=== PATIENT | male | born 1970 | race Caucasian/White ===

== ENCOUNTER 2016-10-17 11:47 | Observation (INO) ==
--- NOTE | 2016-10-17 12:05 | Emergency Department Note ---
Disposition Clinical Impression: Hyperglycemia Disposition: Admitted As Inpatient Condition: Fair General Adult HPI - General Chief complaint: ED General Medical Stated complaint: elevated blood sugar Source: patient, EMS Limitations: no limitations Nursing Notes Reviewed: Yes Vital Signs Reviewed: Yes - History of Present Illness HPI Narrative: 45-year-old gentleman who is known diabetic. He is placed on steroids related to a sinus infection. His glucose has been reading much higher. He was brought in by squad today because of diabetic emergency. Patient has not passed out. Patient has been somnolent. 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 He has not fainted. Patient is a type II diabetic. His states she called his family doctor Dr. Ambrocio: Insulin when they went to the pharmacy there is no prescription so called squad. Onset (ago): day(s) Pain Scale: 0 - Related Data Home Medications Medication Instructions Recorded Confirmed Aspirin [Lo-Dose Aspirin EC] 81 mg PO DAILY 10/17/16 10/17/16 Atorvastatin [Lipitor] 40 mg PO HS 10/17/16 10/17/16 Azithromycin [Azithromycin 6-Tab 250 mg PO PER PKG DI 10/17/16 10/17/16 Pack] Clindamycin HCl [Cleocin HCl] 300 mg PO TID 10/17/16 10/17/16 Escitalopram [Lexapro] 20 mg PO DAILY 10/17/16 10/17/16 Furosemide [Lasix] 40 mg PO DAILY 10/17/16 10/17/16 Insulin Glargine [Lantus] 20 - 50 unit SQ HS 10/17/16 10/17/16 Lisinopril [Zestril] 10 mg PO DAILY 10/17/16 10/17/16 Loperamide [Imodium] 2 mg PO QID 10/17/16 10/17/16 Loratadine [Claritin] 10 mg PO DAILY 10/17/16 10/17/16 Metformin [Glucophage] 1,000 mg PO 0800 10/17/16 10/17/16 MethylPREDNISolone 4 mg PO DAILY 10/17/16 10/17/16 [MethylPREDNISolone Dose Pack] Metoprolol Tartrate [Lopressor] 50 mg PO BID 10/17/16 10/17/16 Potassium Chloride [Klor-Con 10] 20 meq PO DAILY 10/17/16 10/17/16 Tizanidine HCl 4 mg PO QID 10/17/16 10/17/16 Allergies Allergy/AdvReac Type Severity Reaction Status Date / Time Penicillins AdvReac See Verified 01/25/16 08:14 Comments Procaine [From Novocain] AdvReac See Verified 01/25/16 08:14 Comments All systems ED: reviewed and negative except as stated. Past Medical History - Past Medical History Medical history: Reports: arthritis, coronary artery disease, diabetes, GERD, hyperlipidemia, hypertension, valvular heart disease Psychiatric history: Reports: anxiety, depression - Social History Smoking Status: Former smoker Smokeless Tobacco Status: No Alcohol use: Reports: none Drug use: Reports: none Physical Exam - General Limitations: no limitations General appearance: alert, in no apparent distress - Head Head exam: atraumatic - Eye Eye exam: Present: normal appearance, PERRL - Neck Neck exam: Present: normal inspection - Chest Chest inspection: Present: normal inspection, other (Sternal scar consistent with valve replacement) - Respiratory Respiratory exam: Present: normal lung sounds bilaterally - Cardiovascular Cardiovascular exam: Present: regular rate, systolic murmur - Abdominal Exam Abdominal exam: Present: soft, Non-Tender - Expanded Lower Extremity Exam Gait: not tested/not observed - Back Exam Back exam: Present: normal inspection - Neurological Exam Neurological exam: Present: alert, oriented X3, CN II-XII intact - Psychiatric Psychiatric exam: Present: normal affect, normal mood - Skin Skin exam: Present: warm, dry Course Vital Signs Temperature 97.7 F 10/17/16 11:51 Pulse Rate 66 10/17/16 11:51 Respiratory Rate 18 10/17/16 11:51 Blood Pressure 135/87 10/17/16 11:51 O2 Sat by Pulse Oximetry 96 10/17/16 11:51 Temperature 97.6 F 10/17/16 13:48 Pulse Rate 62 10/17/16 13:48 Respiratory Rate 18 10/17/16 13:48 Blood Pressure 116/80 10/17/16 13:48 O2 Sat by Pulse Oximetry 94 L 10/17/16 13:48 Oxygen Delivery Oxygen Delivery Room Air Medical Decision Making - MDM Narrative Medical decision making narrative: Differential: Diabetic ketoacidosis versus steroid-induced hyperglycemia versus syncope versus cardiac event - Lab Data Lab results reviewed: Yes I reviewed the patient's lab results. Result diagrams: 10/17/16 12:11 10/17/16 12:11 Lab Results 10/17/16 10/17/16 10/17/16 Range/Units 11:58 11:59 12:11 WBC 18.3 H (4.3-11.1) K/mcL RBC 5.02 (4.19-5.50) M/mcL Hgb 14.0 (12.9-16.9) g/dL Hct 42.3 (37.5-50.1) % MCV 84.3 (83.0-100.0) fL MCH 27.9 L (28.0-33.3) pg MCHC 33.1 (31.6-35.5) g/dL RDW 12.4 (11.5-14.5) % Plt Count 264 (140-400) K/mcL MPV 10.8 (9.4-12.4) fL Immature Gran % 0.9 (0-4) % Seg Neutrophils % 87.3 % Lymphocytes % 8.7 % Monocytes % 2.7 % Eosinophils % 0.2 % Basophils % 0.2 % Neutrophils # 16.0 H (1.6-8.9) K/mcL Lymphocytes # 1.6 (0.6-4.6) K/mcL Monocytes # 0.5 (0.0-1.3) K/mcL Eosinophils # 0.0 (0.0-0.6) K/mcL Basophils # 0.0 (0.0-0.2) K/mcL PT (9.4-12.1) Seconds INR Sodium (136-145) mEq/L Potassium (3.5-4.5) mEq/L Chloride (98-109) mEq/L Carbon Dioxide (19-29) mEq/L BUN (8-26) mg/dL Creatinine (0.72-1.25) mg/dL Est GFR ( Amer) (> 60) Est GFR (Non-Af Amer) (> 60) BUN/Creatinine Ratio (6-26) Glucose (70-99) mg/dL POC Glucose 462 H* 495 H* (58-89) Calculated Osmolality (280-300) Calcium (8.6-10.8) mg/dL Total Bilirubin (0.2-1.2) mg/dL AST (5-34) Units/L ALT (0-55) Units/L Alkaline Phosphatase (38-126) Units/L Troponin I (0-0.03) ng/mL Serum Total Protein (6.0-8.3) g/dL Albumin (3.5-5.0) g/dL Globulin (2.4-3.5) g/dL Albumin/Globulin Ratio (1.1-2.2) Urine Color (Yellow) Urine Clarity (Clear) Urine pH (5.0-8.0) pH Units Ur Specific [place] (1.010-1.025) Urine Protein (Neg-Trace) mg/dL Urine Glucose (UA) (Normal) mg/dL Urine Ketones (Negative) mg/dL Urine Blood (Negative) Urine Nitrite (Negative) Urine Bilirubin (Negative) Urine Urobilinogen (Normal) mg/dL Ur Leukocyte Esterase (Negative) Ur Culture Indicated? (NO) 10/17/16 10/17/16 10/17/16 Range/Units 12:11 12:11 12:11 WBC (4.3-11.1) K/mcL RBC (4.19-5.50) M/mcL Hgb (12.9-16.9) g/dL Hct (37.5-50.1) % MCV (83.0-100.0) fL MCH (28.0-33.3) pg MCHC (31.6-35.5) g/dL RDW (11.5-14.5) % Plt Count (140-400) K/mcL MPV (9.4-12.4) fL Immature Gran % (0-4) % Seg Neutrophils % % Lymphocytes % % Monocytes % % Eosinophils % % Basophils % % Neutrophils # (1.6-8.9) K/mcL Lymphocytes # (0.6-4.6) K/mcL Monocytes # (0.0-1.3) K/mcL Eosinophils # (0.0-0.6) K/mcL Basophils # (0.0-0.2) K/mcL PT 12.3 H (9.4-12.1) Seconds INR 1.1 Sodium 130 L (136-145) mEq/L Potassium 5.1 H (3.5-4.5) mEq/L Chloride 96 L (98-109) mEq/L Carbon Dioxide 23 (19-29) mEq/L BUN 29 H (8-26) mg/dL Creatinine 1.43 H (0.72-1.25) mg/dL Est GFR ( Amer) > 60 (> 60) Est GFR (Non-Af Amer) 53 L (> 60) BUN/Creatinine Ratio 20 (6-26) Glucose 569 H* (70-99) mg/dL POC Glucose (58-89) Calculated Osmolality 302 H (280-300) Calcium 9.2 (8.6-10.8) mg/dL Total Bilirubin 0.5 (0.2-1.2) mg/dL AST 22 (5-34) Units/L ALT 37 (0-55) Units/L Alkaline Phosphatase 71 (38-126) Units/L Troponin I 0.00 (0-0.03) ng/mL Serum Total Protein 6.8 (6.0-8.3) g/dL Albumin 3.6 (3.5-5.0) g/dL Globulin 3.2 (2.4-3.5) g/dL Albumin/Globulin Ratio 1.1 (1.1-2.2) Urine Color (Yellow) Urine Clarity (Clear) Urine pH (5.0-8.0) pH Units Ur Specific [place] (1.010-1.025) Urine Protein (Neg-Trace) mg/dL Urine Glucose (UA) (Normal) mg/dL Urine Ketones (Negative) mg/dL Urine Blood (Negative) Urine Nitrite (Negative) Urine Bilirubin (Negative) Urine Urobilinogen (Normal) mg/dL Ur Leukocyte Esterase (Negative) Ur Culture Indicated? (NO) 10/17/16 Range/Units 12:13 WBC (4.3-11.1) K/mcL RBC (4.19-5.50) M/mcL Hgb (12.9-16.9) g/dL Hct (37.5-50.1) % MCV (83.0-100.0) fL MCH (28.0-33.3) pg MCHC (31.6-35.5) g/dL RDW (11.5-14.5) % Plt Count (140-400) K/mcL MPV (9.4-12.4) fL Immature Gran % (0-4) % Seg Neutrophils % % Lymphocytes % % Monocytes % % Eosinophils % % Basophils % % Neutrophils # (1.6-8.9) K/mcL Lymphocytes # (0.6-4.6) K/mcL Monocytes # (0.0-1.3) K/mcL Eosinophils # (0.0-0.6) K/mcL Basophils # (0.0-0.2) K/mcL PT (9.4-12.1) Seconds INR Sodium (136-145) mEq/L Potassium (3.5-4.5) mEq/L Chloride (98-109) mEq/L Carbon Dioxide (19-29) mEq/L BUN (8-26) mg/dL Creatinine (0.72-1.25) mg/dL Est GFR ( Amer) (> 60) Est GFR (Non-Af Amer) (> 60) BUN/Creatinine Ratio (6-26) Glucose (70-99) mg/dL POC Glucose (58-89) Calculated Osmolality (280-300) Calcium (8.6-10.8) mg/dL Total Bilirubin (0.2-1.2) mg/dL AST (5-34) Units/L ALT (0-55) Units/L Alkaline Phosphatase (38-126) Units/L Troponin I (0-0.03) ng/mL Serum Total Protein (6.0-8.3) g/dL Albumin (3.5-5.0) g/dL Globulin (2.4-3.5) g/dL Albumin/Globulin Ratio (1.1-2.2) Urine Color Yellow (Yellow) Urine Clarity Clear (Clear) Urine pH 5.0 (5.0-8.0) pH Units Ur Specific [place] 1.010 (1.010-1.025) Urine Protein Negative (Neg-Trace) mg/dL Urine Glucose (UA) 500 H (Normal) mg/dL Urine Ketones Negative (Negative) mg/dL Urine Blood Negative (Negative) Urine Nitrite Negative (Negative) Urine Bilirubin Negative (Negative) Urine Urobilinogen Normal (Normal) mg/dL Ur Leukocyte Esterase Negative (Negative) Ur Culture Indicated? NO (NO) - Radiology Data Radiology results reviewed: Yes I reviewed the patient's radiology results. ITS Impressions Chest X-Ray 10/17/16 11:58 IMPRESSION: Stable appearing chest without acute cardiopulmonary process. D/ / Wilian Mohr MD / Wilian Mohr MD Interpreting Provider: Wilian Mohr MD Head CT 10/17/16 11:58 IMPRESSION: No acute intracranial abnormality. D/ / Ryder Thompson MD / Ryder Thompson MD Interpreting Provider: Ryder Thompson MD
[2016-10-17 12:18] LABS: Basophils % 0.2 %; Eosinophils % 0.2 %; Hematocrit 42.3 % (37.5-50.1); Immature Granulocytes % 0.9 % (0-4); Lymphocytes # 1.6 K/mcL (0.6-4.6); Lymphocytes % 8.7 %; Mean Corpuscular HGB Conc 33.1 g/dL (31.6-35.5); Mean Corpuscular Hemoglobin 27.9 pg (28.0-33.3); Mean Corpuscular Volume 84.3 fL (83.0-100.0); Mean Platelet Volume 10.8 fL (9.4-12.4); Monocytes # 0.5 K/mcL (0.0-1.3); Monocytes % 2.7 %; Platelet Count 264 K/mcL (140-400); Red Blood Count 5.02 M/mcL (4.19-5.50); Red Cell Distribution Width 12.4 % (11.5-14.5); Segmented Neutrophils % 87.3 %
[2016-10-17 12:23] LABS: Bilirubin,Urine Negative (Negative); Blood,Urine Negative (Negative); Clarity,Urine Clear (Clear); Color,Urine Yellow (Yellow); Glucose,Urine (UA) 500 mg/dL (Normal); Ketones,Urine Negative (Negative); Leukocyte Esterase,Urine Negative (Negative); Nitrite,Urine Negative (Negative); Protein,Urine Negative (Neg-Trace); Urobilinogen,Urine Normal (Normal)
[2016-10-17 12:24] LABS: INR 1.1; Prothrombin Time 12.3 Seconds (9.4-12.1)
[2016-10-17 12:36] LABS: Alanine Aminotransferase 37 Units/L (0-55); Albumin 3.6 g/dL (3.5-5.0); Albumin/Globulin Ratio 1.1 (1.1-2.2); Alkaline Phosphatase 71 Units/L (38-126); Aspartate Amino Transferase 22 Units/L (5-34); BUN/Creatinine Ratio 20 (6-26); Bilirubin,Total 0.5 mg/dL (0.2-1.2); Blood Urea Nitrogen 29 mg/dL (8-26); Calcium 9.2 mg/dL (8.6-10.8); Carbon Dioxide 23 mEq/L (19-29); Chloride 96 mEq/L (98-109); Globulin 3.2 g/dL (2.4-3.5); Osmolality,Calculated 302 (280-300); Potassium 5.1 mEq/L (3.5-4.5); Sodium 130 mEq/L (136-145); Total Protein 6.8 g/dL (6.0-8.3); eGFR For African Americans > 60 (> 60); eGFR For Non-African Americans 53 (> 60)
[2016-10-17 12:38] LABS: Glucose 569 mg/dL (70-99)
[2016-10-17] MEDS ORDERED: Insulin Regular, Human 100 UNIT/ML SQ STA (12:53)
[2016-10-17] MEDS ORDERED: D5% in Water 1,000 ML IV PRN (13:55)
[2016-10-17] MEDS ORDERED: Dextrose Gel 15 GM PO PRN ×2 (13:55)
[2016-10-17] MEDS ORDERED: *HR* Dextrose 50 % in Water (Syg) 50 ML SYRINGE IVP PRN (13:55)
--- NOTE | 2016-10-17 14:56 | Internal Med History&Physical ---
Date of Encounter: 10/17/16 Time of Encounter: 14:30 Assessment and Plan (1) Hyperglycemia Current visit: Yes Status: Acute He has been started on sliding-scale insulin coverage. His Medrol Dosepak will be discontinued. His home dose of Lantus and Glucophage will be continued for now. Hemoglobin A1c will be checked. (2) Azotemia Current visit: Yes Status: Acute We will give IV fluids and recheck labs in a.m. 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 We will withhold antibiotics and recheck labs in a.m. Internal Medicine - H&P: HPI Chief complaint: Hyperglycemia and lethargy Admitted From: Home Plans for Post Hospital Care: Home History of present illness: Mr. Tam is a 45 year old male who came to the emergency room after his blood sugar was approximately 495 mg percent on his home blood glucose machine. His also noted he was becoming more lethargic. He is evaluated in emergency room and admitted to [facility] floor for ongoing care needs. He was diagnosed with DM 2 approximately 3 years ago. He states his sugars have recurrently been above 200 mg percent recently. He does not follow a diabetic diet closely. He was given a Medrol Dosepak for sinus symptoms 2 days earlier. Denies significant infectious symptoms recently otherwise. He has hyperlipidemia but no known thyroid disease. Past Med Surg Social Fam HX - Past Medical History Medical history: arthritis, coronary artery disease, diabetes, GERD, hyperlipidemia, hypertension, valvular heart disease Psychiatric history: anxiety, depression - Social History Smoking Status: Former smoker Smokeless Tobacco Status: No Alcohol use: none Drug use: none Internal Medicine - H&P: Meds Aspirin [Lo-Dose Aspirin EC] 81 mg PO DAILY 10/17/16 [History] Atorvastatin [Lipitor] 40 mg PO HS 10/17/16 [History] Azithromycin [Azithromycin 6-Tab Pack] 250 mg PO PER PKG DI 10/17/16 [History] Clindamycin HCl [Cleocin HCl] 300 mg PO TID 10/17/16 [History] Escitalopram [Lexapro] 20 mg PO DAILY 10/17/16 [History] Furosemide [Lasix] 40 mg PO DAILY 10/17/16 [History] Insulin Glargine [Lantus] 20 - 50 unit SQ HS 10/17/16 [History] Lisinopril [Zestril] 10 mg PO DAILY 10/17/16 [History] Loperamide [Imodium] 2 mg PO QID 10/17/16 [History] Loratadine [Claritin] 10 mg PO DAILY 10/17/16 [History] Metformin [Glucophage] 1,000 mg PO 0800 10/17/16 [History] MethylPREDNISolone [MethylPREDNISolone Dose Pack] 4 mg PO DAILY 10/17/16 [ History] Metoprolol Tartrate [Lopressor] 50 mg PO BID 10/17/16 [History] Potassium Chloride [Klor-Con 10] 20 meq PO DAILY 10/17/16 [History] Tizanidine HCl 4 mg PO QID 10/17/16 [History] Allergies Penicillins Adverse Reaction (Verified 01/25/16 08:14) See Comments PT WAS AN , DOES NOT KNOW WHAT HAPPENED Procaine [From Novocain] Adverse Reaction (Verified 01/25/16 08:14) See Comments FAST HEART RATE All Systems PM: A 10-system review of systems was performed and is negative for pertinent findings except as documented above in the HPI. Review of systems: Gen.: His weight is increased from 96.161 kg at the November 2013 hospitalization to 115.666 kg at present. Cardiovascular: He has a history of hypertension. Bicuspid aortic valve with porcine valve replacement August [address] [facility]. He denies CA heart failure angina DVT or pulmonary embolus. There was no significant CAD seen on heart catheter prior to valve replacement surgery. Respiratory: He smoked from age [age] up to 1 -1/2 packs per day. He does not wear home oxygen and has not been tested for sleep apnea or had PFTs. GI: He has hemorrhoids. He denies disorders of his liver gallbladder or exocrine pancreas : No history of hematuria dysuria or kidney stones Neurologic: No history of strokes or seizures Endocrine: As per history of present illness Hematology/oncology: No history of blood disorders cancers or anemia Psychiatric: He denies anxiety depression or other mental health issues Musk skeletal: He has arthritis and gout. - Constitutional Vitals: Temp Pulse Resp BP Pulse Ox 97.6 F 62 18 116/80 94 L 10/17/16 13:48 10/17/16 13:48 10/17/16 13:48 10/17/16 13:48 10/17/16 13:48 Exam: Gen.: He is a well-developed well-nourished male who appears in no severe distress at present time. HEENT: Head is atraumatic and normocephalic. Eyes: EOMI. There is no scleral icterus. Mouth: Mucosa is moist. Neck: Supple and nontender. There is no thyromegaly or adenopathy noted. Heart: Regular with a 2 to 3/6 systolic murmur heard at left sternal border and the base. S1 and S2 are preserved. No murmurs or gallops are heard. Lungs: No wheezes or crackles heard. Abdomen: Soft and nontender. No masses or guarding are noted. Extremities: There is no cyanosis edema or clubbing noted. Dorsalis pedis and posttibial pulses are 1-2 over 2 bilaterally. Neurologic: Mental status: He is talkative and a good historian. Cranial nerves : Smile is symmetric. Forehead wrinkles bilaterally. Tongue protrudes midline. EOMI. Motor: There is no pronator drift. Cerebellar: Fair to nose is intact bilaterally. Skin: Warm and dry Internal Med - H&P Results - Labs CBC & Chem 7: 10/17/16 12:11 10/17/16 12:11
[2016-10-17] MEDS: *HR* Metformin 500 MG TABLET PO SCH (20:25)
[2016-10-17] MEDS: Insulin LISPRO 300 UNITS/3 ML VIAL SQ SCH (20:27)
[2016-10-17] MEDS: 0.9 % Sodium Chloride 1,000 ML IVC SCH (20:27)
[2016-10-17] MEDS ORDERED: Insulin LISPRO 300 UNITS/3 ML VIAL SQ SCH (21:00)
[2016-10-17] MEDS ORDERED: Insulin DETEMIR 100 UNIT/ML X5UNITS SQ SCH (21:00)
[2016-10-18] MEDS: 0.9 % Sodium Chloride 1,000 ML IVC SCH (05:42)
[2016-10-18 06:14] LABS: Basophils # 0.1 K/mcL (0.0-0.2); Basophils % 0.3 %; Eosinophils # 0.2 K/mcL (0.0-0.6); Eosinophils % 1.4 %; Hematocrit 39.4 % (37.5-50.1); Immature Granulocytes % 0.6 % (0-4); Lymphocytes # 3.3 K/mcL (0.6-4.6); Lymphocytes % 21.7 %; Mean Corpuscular Hemoglobin 27.8 pg (28.0-33.3); Mean Corpuscular Volume 84.2 fL (83.0-100.0); Mean Platelet Volume 10.9 fL (9.4-12.4); Monocytes # 0.7 K/mcL (0.0-1.3); Monocytes % 4.3 %; Neutrophils # 10.9 K/mcL (1.6-8.9); Platelet Count 259 K/mcL (140-400); Red Blood Count 4.68 M/mcL (4.19-5.50); Red Cell Distribution Width 12.5 % (11.5-14.5); Segmented Neutrophils % 71.7 %
[2016-10-18 06:32] LABS: BUN/Creatinine Ratio 21 (6-26); Blood Urea Nitrogen 24 mg/dL (8-26); Calcium 8.6 mg/dL (8.6-10.8); Carbon Dioxide 26 mEq/L (19-29); Chloride 101 mEq/L (98-109); Glucose 224 mg/dL (70-99); Osmolality,Calculated 297 (280-300); Potassium 3.9 mEq/L (3.5-4.5); Sodium 138 mEq/L (136-145); eGFR For African Americans > 60 (> 60); eGFR For Non-African Americans > 60 (> 60)
[2016-10-18 06:46] VITALS: BP 130/89
[2016-10-18] MEDS: Insulin LISPRO 300 UNITS/3 ML VIAL SQ SCH (07:47)
[2016-10-18] MEDS: *HR* Metformin 500 MG TABLET PO SCH (07:48)
[2016-10-18] MEDS ORDERED: *HR* Metformin 500 MG TABLET PO SCH (08:00)
[2016-10-18] MEDS ORDERED: Furosemide 40 MG TABLET PO SCH (09:00)
[2016-10-18] MEDS ORDERED: Aspirin Enteric Coated 81 MG Tablet PO SCH (09:00)
[2016-10-18] MEDS ORDERED: Loratadine 10 MG TABLET PO SCH (09:00)
--- NOTE | 2016-10-18 09:07 | Discharge Summary ---
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 Qualified Code(s) : E11.8 - Type 2 diabetes mellitus with unspecified complications; Z79.4 - [facility] (current) use of insulin (4) Neutrophilic leukocytosis Priority: Secondary Status: Acute - Discharge Medications Home Medications: Aspirin [Lo-Dose Aspirin EC] 81 mg PO DAILY 10/17/16 [History] Atorvastatin [Lipitor] 40 mg PO HS 10/17/16 [History] Azithromycin [Azithromycin 6-Tab Pack] 250 mg PO PER PKG DI 10/17/16 [History] Escitalopram [Lexapro] 20 mg PO DAILY 10/17/16 [History] Furosemide [Lasix] 40 mg PO DAILY 10/17/16 [History] Insulin Glargine [Lantus] 20 - 50 unit SQ HS 10/17/16 [History] Lisinopril [Zestril] 10 mg PO DAILY 10/17/16 [History] Loperamide [Imodium] 2 mg PO QID 10/17/16 [History] Metoprolol Tartrate [Lopressor] 50 mg PO BID 10/17/16 [History] Tizanidine HCl 4 mg PO QID 10/17/16 [History] Metformin [Glucophage] 500 mg PO BID tablet 10/18/16 [Rx] Potassium Chloride [Klor-Con 10] 10 meq PO DAILY #0 10/18/16 [Rx] Allergies/Adverse Reactions: Allergies Penicillins Adverse Reaction (Verified 01/25/16 08:14) See Comments PT WAS AN INFANT, DOES NOT KNOW WHAT HAPPENED Procaine [From Novocain] Adverse Reaction (Verified 01/25/16 08:14) See Comments FAST HEART RATE Date of admission: 10/17/16 13:19 Primary care physician: RANJITH Duenas - Patient Status Disposition: Home, Self-Care Condition: Fair Overall status at discharge: patient is progressing back to baseline - Discharge Instructions Follow Up With: Marisela Barraza, [facility]NER [Primary Care Provider] - 1 week - Diet and Activity Activity: resume usual activities as tolerated Diet: advance to your usual diet Hospital course: Mr. Tam is a 45 year old male who came to the emergency room after his blood sugar was approximately 495 mg percent on his home blood glucose machine. His also noted he was becoming more lethargic. He is evaluated in emergency room and admitted to [facility] for ongoing care needs. Initial orders were written by the emergency room physician. I saw him on October 17 and performed a history and physical. His prednisolone was discontinued. IV fluids and sliding scale insulin coverage were given. His blood sugar returned to satisfactory range. Hemoglobin A1c was ordered but results are pending at time of this dictation. Azotemia resolved with BUN and creatinine being 24 and 1.13 respectively on the day of discharge with estimated GFR greater than 60. His hyperkalemia resolved. His home potassium dose will be decreased to 10 mEq daily. His leukocytosis improved with the WBC decreasing to 15.2 K and resolution of the left shift on the day of discharge. He remained afebrile. Antibiotics will not be given at discharge. On October 18 he felt stable for discharge home. He will follow with Dr. Polanco within 1 week. - Time Spent with Patient Total time spent providing and/or coordinating discharge services: - Constitutional Vitals: Temp Pulse Resp BP Pulse Ox 97.7 F 60 18 130/89 96 10/18/16 06:43 10/18/16 06:43 10/18/16 06:43 10/18/16 06:43 10/18/16 06:43
[2016-10-18 13:09] LABS: Hemoglobin A1C 8.1 %
--- NOTE | 2016-10-20 12:02 | Electrocardiograph Report ---
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
== END 2016-10-18 10:15 | disposition home or self-care (01) ==
LOC: EMEROOPIK 11:47 → INPPIK 11:47
PROVIDERS: ADMIT Internal Medicine; ATTEND Internal Medicine